=== PATIENT | female | born 1970 | race Caucasian/White ===

== ENCOUNTER → 2017-09-05 | Day surgery (SDC) | payer OTHER ==
[~2017-09-05] MED LIST: ACETAMINOPHEN 1000 MG/100 ML 100 ML IV ONE; ISOSULFAN BLUE 50 MG/5 ML VIAL SQ ONE; KETOROLAC TROMETHAMINE 30 MG/ML (IVP) VIAL IV PUSH ONE; MIDAZOLAM HCL 2 MG/2 ML VIAL ONE; ONDANSETRON HCL 4 MG/2 ML VIAL IV PUSH ONE; PROPOFOL 200 MG/20 ML AMP IV ONE; ceFAZolin 2 GM PREMIX 50 ML ONE
--- NOTE | 2017-09-05 17:34 | MP ---
cc: REYNANDO DATE OF SURGERY: 09/05/2017 PREOPERATIVE DIAGNOSIS: Carcinoma of the right breast x2. POSTOPERATIVE DIAGNOSIS: Carcinoma of the right breast x2. OPERATION: Needle localization x2, carcinoma of the right breast with axillary sentinel lymph node biopsy. SURGEON: Dr. Pulliam ANESTHESIA: General. PROCEDURE AND FINDINGS: The patient was brought to the operating room after having undergone needle localization of two separate masses in the right breast confirmed to be cancer. She also underwent nuclear injection for sentinel lymph node biopsy. The right breast was prepped and draped in the usual sterile fashion after which the axilla was approached first and 0.5% Marcaine with epinephrine was infiltrated in the skin for local anesthesia. A transverse infra-axillary incision was made carried down sharply through the subcutaneous tissue with the cautery being used for hemostasis. Incision was deepened into the axilla proper by incising the clavipectoral fascia. The navigator probe was used to identify the area of highest radioactivity and this area was grasped with an Allis clamp and the lymph node was identified and dissected free using the cautery. It was sent for permanent pathology marked as the right axillary sentinel lymph node. Attention was then turned to hemostasis which was seen to be satisfactory. The subcutaneous tissue was closed with interrupted 3-0 Vicryl suture and the skin closed with interrupted 4-0 Monocryl subcuticular stitches. The breast tissue was anesthetized with 0.5% Marcaine with epinephrine. A curvilinear skin incision was made between the previously placed guide wires and carried down sharply through the subcutaneous tissue with cautery being used for hemostasis. The posterior wire was grasped within the breast parenchyma with a hemostat and amputated at the level of the skin and brought within the wound. Likewise the other wire was grasped with a hemostat, amputated and then brought within the wound as well. Allis clamps were placed on both guide wires as well as the breast tissue around it and a large core of breast tissue was dissected free sharply and sent for specimen mammogram which revealed the presence of the lesions in question. Hemostasis was then strictly assured using the cautery after which the subcutaneous tissue and skin were closed with interrupted 4-0 PDS subcuticular stitches. The remainder of the Marcaine was infiltrated in the surrounding tissue and then Steri-Strips were applied. The patient was then awakened and taken from the operating room in satisfactory condition having tolerated the procedure without problem. Estimated blood loss was less than 50 mL. The instrument, sponge count and needle counts reported as being correct x2 at the end of the procedure. MD HOME Frazier/VALERIA /12:43 PM /5:17 PM
== END | disposition home or self-care (01) ==
LOC: ESDC 06:04
PROVIDERS: ATTEND Surgery
DX: C50.911 Malignant neoplasm of unspecified site of right female breast (principal)
CPT/HCPCS: 00400; 01610; 19125; 19126; 38525; 88307; J0131; J0690; J1885; J2250; J2405; J3010; 88309; Q9968